=== PATIENT | female | born 1960 | race American Indian/Alaskan Native ===

== ENCOUNTER 2016-08-10 13:01 | Outpatient (CLI) | payer BC ==
--- NOTE | 2016-08-10 14:14 | Mammography Report ---
BILATERAL MAMMOGRAM: FINDINGS: The breast tissue is heterogeneously dense, which could obscure detection of small masses (approximately 50%-75% glandular). No mass, distortion, suspicious calcification, or skin change is seen. No no no changes when compared to the prior examination in July 2014. CAD was utilized. IMPRESSION: Negative mammogram. There is no mammographic evidence of malignancy. RECOMMENDATION: Follow-up per ACS guidelines. BI-RADS CATEGORY: 1 = Negative ACR BI-RADS MAMMOGRAPHIC CODES: 0 = Needs additional imaging evaluation; 1 = Negative; 2 = Benign; 3 = Probably benign; 4 = Suspicious; 5 = Malignant; 6 = Known biopsy-proven malignancy COMMENT: 1. Dense breast tissue, i.e., adenosis, fibrocystic changes, etc., may obscure an underlying neoplasm. 2. Approximately 10% of cancers are not detected with mammography. 3. A negative mammography report should not delay biopsy if a clinically suspicious mass is present. COMMENT: Patient follow-up letters are generated in [place].
== END 2016-08-10 13:02 | disposition home or self-care (01) ==
LOC: MAMMO 13:01
PROVIDERS: ATTEND Obstetrics & Gynecology Gynecology
DX: Z12.31 Encounter for screening mammogram for malignant neoplasm of breast (principal)
CPT/HCPCS: 77067; G0202

== ENCOUNTER 2017-08-23 08:29 | Outpatient (CLI) | payer BC ==
--- NOTE | 2017-08-29 12:51 | Mammography Report ---
BILATERAL DIGITAL SCREENING MAMMOGRAM with CAD and with BILATERAL DIGITAL BREAST TOMOSYNTHESIS (DBT) : 08/23/17 08:45:00 CLINICAL: Routine screening. COMPARISON:08/10/16, 07/23/14 and 07/11/13 FINDINGS: The breasts are heterogeneously dense, which may obscure small masses. A left outer posterior circumscribed focal asymmetry requires additional imaging.It is oval and relatively smooth but has a tail on both views and is located approximately 7 cm from the nipple. No architectural distortion or suspicious calcifications. The left breast is negative. IMPRESSION: Right focal requiring additional workup. BI-RADS CATEGORY: 0 - - Needs Additional Imaging RECOMMENDATION: Recall for ultrasound of the outer right breast. COMMENT: Patient follow-up letters are generated by our [employer] application.
== END 2017-08-23 08:30 | disposition home or self-care (01) ==
LOC: MAMMO 08:29
PROVIDERS: ATTEND Obstetrics & Gynecology Gynecology
DX: Z12.31 Encounter for screening mammogram for malignant neoplasm of breast (principal)
CPT/HCPCS: 77063; 77067

== ENCOUNTER 2017-10-12 07:47 | Outpatient (CLI) | payer BC ==
--- NOTE | 2017-10-12 08:39 | Ultrasound Report ---
Right breast ultrasound: Examination performed based on recent tomomammogram of August 23 demonstrating right breast nodule. In the lateral right breast at approximately 9:00 there is a circumscribed hypoechoic nodule measuring 6 mm which would correspond to the mammographic nodule. The low-level echoes are identified in the nodule as well as a small echogenic peripheral focus. In the 12:00 location there is an irregular but circumscribed anechoic nodule measuring just under 8 mm. In the 9:00 location but considerably closer to the nipple than the mammographic nodule is a circumscribed elongated and homogeneously hypoechoic structure measuring 9.4 mm in size. Impressions: 1. The finding at 9:00 corresponds to the mammogram and cannot be established as a simple cyst. 2. 12:00 cyst. 3. Probably benign finding at 9:00 described as being closer to the nipple. Recommendation: 1. The 9:00 nodule corresponding to the mammographic finding needs further evaluation. Recommend attempted aspiration followed by biopsy if not simple cyst. This has been explained to the patient. 2. The 9:00 finding closer to the nipple is probably benign and 6 month ultrasound followup is recommended. BI-RADS CATEGORY: 4 = Suspicious ACR BI-RADS MAMMOGRAPHIC CODES: 0 = Needs additional imaging evaluation; 1 = Negative; 2 = Benign; 3 = Probably benign; 4 = Suspicious; 5 = Malignant; 6 = Known biopsy-proven malignancy COMMENT: 1. Dense breast tissue, i.e., adenosis, fibrocystic changes, etc., may obscure an underlying neoplasm. 2. Approximately 10% of cancers are not detected with mammography. 3. A negative mammography report should not delay biopsy if a clinically suspicious mass is present.
== END 2017-10-12 07:48 | disposition home or self-care (01) ==
LOC: US 07:47
PROVIDERS: ATTEND Obstetrics & Gynecology Gynecology
DX: R92.8 Other abnormal and inconclusive findings on diagnostic imaging of breast (principal)

== ENCOUNTER 2017-11-06 12:41 | Outpatient (CLI) | payer BC ==
--- NOTE | 2017-11-06 14:21 | Mammography Report ---
RIGHT DIGITAL DIAGNOSTIC MAMMOGRAM: 11/06/17 12:41:00 CLINICAL: For clip placement immediately status post ultrasound guided needle aspiration and biopsy. COMPARISON:08/23/17 mammogram FINDINGS: The previously described lower outer lesion near the pectoral muscle is no longer identified and there is a biopsy clip at the location. IMPRESSION: Concordant clip placement status post ultrasound guided aspiration and biopsy.The lesion has disappeared on the mammogram. BI-RADS CATEGORY: 4A--Mildly Suspicious Pathology pending.
--- NOTE | 2017-11-06 16:37 | Ultrasound Report ---
ULTRASOUND GUIDED NEEDLE ASPIRATION AND CORE BIOPSY RIGHT BREAST WITH CLIP PLACEMENT: 11/06/17 CLINICAL: Right breast lesion at 9 o'clock. COMPARISON :10/12/17 FINDINGS: The procedure was explained to the patient and informed consent was obtained. Ultrasound demonstrated an irregular predominantly cystic lesion at 8 o'clock 7 cm from the nipple which appears to correlate with the previously identified lesion.. I marked the breast with a felt tip marker and a time out was called. The skin was prepped with Betadine and anesthetized with 1% lidocaine. Needle aspiration was performed using ultrasound guidance, 2% lidocaine with epinephrine for deep anesthesia and an 18-gauge needle. The lesion show partial collapse with aspiration of a small quantity of fluid. Since it did not show complete collapse I elected to also do a core biopsy. Using a 14-gauge achieve biopsy device 2 cores were obtained and placed in formalin. The lesion showed complete collapse and a clip was deployed at the site. The patient tolerated the procedure well and there were no apparent complications. Hemostasis was achieved with minimal pressure and a sterile dressing was applied. A two view mammogram demonstrated complete resolution of the previously described mammographic lesion and concordant clip deployment. She left the department in good condition and was given instructions for wound care and followup. IMPRESSION: Uncomplicated ultrasound guided needle aspiration and needle core biopsy with clip placement right breast.
== END 2017-11-06 12:42 | disposition home or self-care (01) ==
LOC: SPVWC 12:41
PROVIDERS: ATTEND Obstetrics & Gynecology Gynecology
DX: N60.11 Diffuse cystic mastopathy of right breast (principal); N60.81 Other benign mammary dysplasias of right breast; Z88.5 Allergy status to narcotic agent; Z91.018 Allergy to other foods
CPT/HCPCS: 88112; 88305

== ENCOUNTER 2018-06-10 12:06 | Outpatient (CLI) | payer BC ==
--- NOTE | 2018-06-10 14:54 | Mammography Report ---
RIGHT DIGITAL DIAGNOSTIC MAMMOGRAM with CAD and RIGHT BREAST ULTRASOUND: 06/10/18 CLINICAL: Right breast lump and pain. COMPARISON:11/06/17 FINDINGS: The breast is heterogeneously dense, which may obscure small masses.No mass, architectural distortion or suspicious calcifications.A posterior biopsy clip at 6 o'clock. No mammographic finding at a palpable marker of the above the nipple. Ultrasound of the right breast (including all four quadrants and the retroareolar area) was performed and demonstrated multiple benign cysts. A cluster of cysts at 11 o'clock 1 cm from the nipple correlates with the area lump and pain. I scanned the patient myself and felt no suspicious lump in the area pain. A dominant oval cyst in the cluster at 11 o'clock one centimeters from the nipple measures 4.9 x 3.7 mm. 2 adjacent smaller cysts. A retroareolar cyst measures 4 x 3 x 6 mm. A benign cyst at 9 o'clock 3 cm from the nipple measures 3 x 3 x 2 mm. A benign cyst at 7 o'clock 2 cm from the nipple measures 6 x 2 x 5 mm. No solid mass or shadowing. IMPRESSION: Benign cystswith a cluster of painful cysts at 11 o'clock one centimeters from the nipple. The dominant cyst measures only 5 mm and I doubt that aspiration would be fruitful given the small size of the largest cyst. Recommend followup targeted right breast ultrasound in one month to reevaluate the cluster of painful cysts. BI-RADS CATEGORY: 2 -- Benign COMMENT: Patient follow-up letters are generated by our [employer] [place] application.
== END 2018-06-10 12:07 | disposition home or self-care (01) ==
LOC: SPVWC 12:06
PROVIDERS: ATTEND Obstetrics & Gynecology
DX: N60.01 Solitary cyst of right breast (principal)

== ENCOUNTER 2018-11-12 15:51 | Outpatient (CLI) | payer BC ==
--- NOTE | 2018-11-12 16:42 | Mammography Report ---
DIGITAL SCREENING MAMMOGRAM WITH CAD, 11/12/2018 INDICATION: Routine screening mammography. TECHNIQUE: Digital bilateral 2D mammography was obtained in the craniocaudal and mediolateral obliq ue projections. This examination was interpreted with the benefit of Computer-Aided Detection analysi s. COMPARISON: 08/23/2017 and multiple priors FINDINGS: Breast Density: The breasts are heterogeneously dense, which may obscure small masses. There is no evidence of dominant mass, suspicious calcifications or architectural distortion in the r ight breast. Mild bilateral nodularity is stable in most areas. In the central right breast even with the plane of the nipple and at mid breast level on MLO view only, an irregular density is seen which was not obvious on prior studies. IMPRESSION: Possible new density on the left. Recommend spot compression views and ultrasound if need ed. BI-RADS Category 0: Incomplete. Needs additional imaging evaluation and/or prior mammograms for ronan rison. A "normal" or negative report should not discourage follow up or biopsy of a clinically significant f inding. A written summary of these findings will be mailed to the patient. The patient will be entered into a mammography reporting system which will generate a reminder letter for the patient's next appointmen t at the appropriate interval. The [employer] recommends yearly mammograms starting at age 40 and continuing as l nicolas as a woman is in good health. Breast MRI is recommended for women with an approximate 20-25% or greater lifetime risk of breast cancer, including women with a strong family history of breast or ova nisreen cancer or who have been treated for Hodgkin's disease. Signer Name: Ankit Galdamez MD Signed: 11/12/2018 4:38 PM Workstation Name: [id number]
== END 2018-11-12 15:52 | disposition home or self-care (01) ==
LOC: SPVWC 15:51
PROVIDERS: ATTEND Internal Medicine
DX: Z12.31 Encounter for screening mammogram for malignant neoplasm of breast (principal)
CPT/HCPCS: 77067

== ENCOUNTER 2021-12-01 09:41 | Outpatient (CLI) | payer BC ==
--- NOTE | 2021-12-02 15:52 | Mammography Report ---
DIGITAL SCREENING MAMMOGRAM WITH CAD, 12/01/2021 CLINICAL INFORMATION / INDICATION: Routine screening mammography. TECHNIQUE: Digital bilateral 2D mammography was obtained in the craniocaudal and mediolateral obliqu e projections. This examination was interpreted with the benefit of Computer-Aided Detection analysis . COMPARISON: 11/18/2019, 11/12/2018 FINDINGS: Breast Density: There are scattered areas of fibroglandular density. No dominant mass, suspicious calcifications, or architectural distortion in either breast. Circumscribed oval nodule at the 9:00 position in the left breast is unchanged. There has been no sig nificant interval change. IMPRESSION: No mammographic evidence of malignancy. Follow up recommendation: Routine yearly screening mammogram. BI-RADS Category 2: BENIGN. A "normal" or negative report should not discourage follow up or biopsy of a clinically significant f inding. A written summary of these findings will be mailed to the patient. The patient will be entered into a mammography reporting system which will generate a reminder letter for the patient's next appointmen t at the appropriate interval. The [employer] recommends yearly mammograms starting at age 40 and continuing as l nicolas as a woman is in good health. Breast MRI is recommended for women with an approximate 20-25% or greater lifetime risk of breast cancer, including women with a strong family history of breast or ova nisreen cancer or who have been treated for Hodgkin's disease. Signer Name: Susan Spenec MD Signed: 12/02/2021 3:48 PM Workstation Name: [id number]
== END 2021-12-01 09:42 | disposition home or self-care (01) ==
LOC: SPVWC 09:41
PROVIDERS: ATTEND Internal Medicine
DX: Z12.31 Encounter for screening mammogram for malignant neoplasm of breast (principal); N63.22 Unspecified lump in the left breast, upper inner quadrant
CPT/HCPCS: 77067